=== PATIENT | male | born 1955 | race Caucasian/White ===

== ENCOUNTER 2020-05-27 10:25 | Day surgery (SDC) | payer OTHER ==
[2020-05-22 14:13] VITALS: BMI 27.8
[2020-05-27 10:52] VITALS: TEMP 98.1
[2020-05-27 12:59] VITALS: BP 110/65; PULSE 64
== END 2020-05-27 13:08 | disposition home or self-care (01) ==
LOC: FASU-ENDO 10:25
PROVIDERS: ATTEND Internal Medicine Gastroenterology
PROC: 0DBL8ZX Excision of Transverse Colon, Via Natural or Artificial Opening Endoscopic, Diagnostic (ICD-10-PCS; principal; 2020-05-27 12:04)
DX: Z12.11 Encounter for screening for malignant neoplasm of colon (principal); D12.3 Benign neoplasm of transverse colon; Z86.010 Personal history of colon polyps
CPT/HCPCS: 88305-TC